=== PATIENT | male | born 1995 | race African-American/Black ===

== ENCOUNTER 2018-10-31 08:39 | Emergency (ER) | payer MEDICAID ==
[~2018-10-31] VITALS: Ht 182.9 cm; Wt 104.5 kg
[~2018-10-31 08:39] MED LIST: FAMO-1 PO; OMEP-84 PO; TRAM50TA2 PO; ZOF4T PO
--- NOTE | 2018-10-31 10:32 | NUR ---
Preston Waller contacted and will send someone to loosen ankle bracelet. [phone]. She advised someone should be here within an hour.
[2018-10-31 10:57] LABS: BASOPHILS % (AUTO) 0.9 % (0-1); EOSINOPHILS # (AUTO) 0.1 X10'3 (0-0.9); HEMATOCRIT 45.8 % (42.0-52.0); HEMOGLOBIN 15.6 g/dl (14.0-17.9); LYMPHOCYTES % (AUTO) 26.2 % (21-51); MEAN CORPUSCULAR VOLUME 88.5 FL (78-98); MEAN PLATELET VOLUME 9.2 FL (7.4-10.4); MONOCYTES # (AUTO) 0.3 X10'3 (0-0.9); NEUTROPHILS # (AUTO) 2.5 X10'3 (1.8-7.7); NEUTROPHILS % (AUTO) 62.9 % (42-75); PLATELET COUNT 161 X10'3 (140-440); RED BLOOD COUNT 5.18 X10'6 (4.70-6.10); RED CELL DISTRIBUTION WIDTH 13.4 % (11.5-14.5)
[2018-10-31 11:10] VITALS: BP 140/81
[2018-10-31 11:29] LABS: ALANINE AMINOTRANSFERASE 30 U/L (12-78); ALBUMIN 3.8 G/DL (3.4-5.0); ALKALINE PHOSPHATASE 65 IU/L (46-116); ANION GAP 6 (8-16); ASPARTATE AMINO TRANSFERASE 11 U/L (10-37); BILIRUBIN,TOTAL 0.4 MG/DL (0.1-1.0); BLOOD UREA NITROGEN 14 MG/DL (7-18); BUN/CREATININE RATIO 14.3 (5.4-32.0); CALCIUM 8.7 MG/DL (8.5-10.1); CHLORIDE 104 MMOL/L (99-107); CREATININE 0.98 MG/DL (0.60-1.10); GLUCOSE 96 MG/DL (70-104); POTASSIUM 3.7 MMOL/L (3.5-5.1); SODIUM 140 MMOL/L (135-145); TOTAL CARBON DIOXIDE 29.6 MMOL/L (24-32); TOTAL PROTEIN 7.7 G/DL (6.4-8.2); eGFR > 90 ML/MIN
== END 2018-10-31 12:37 | disposition home or self-care (01) ==
LOC: ER 08:39
DX: R60.0 Localized edema (principal); R20.0 Anesthesia of skin; R06.01 Orthopnea; I10 Essential (primary) hypertension; F41.9 Anxiety disorder, unspecified; Z79.899 Other long term (current) drug therapy; Z83.3 Family history of diabetes mellitus
CPT/HCPCS: 36415; 71045; 80053; 83880; 85025; 99284

== ENCOUNTER 2019-12-13 18:36 | Emergency (ER) | payer MEDICAID ==
[~2019-12-13] VITALS: Ht 182.9 cm; Wt 129.6 kg
[2019-12-13] MEDS ORDERED: naloxone 2mg/2ml inj ONE (19:03)
[2019-12-13] MEDS ORDERED: naloxone 2mg/2ml inj IV STA ×2 (19:03→19:35)
[2019-12-13] MEDS ORDERED: normal saline 1000ML IV soln IVB ONE (19:05)
[2019-12-13 19:18] LABS: BASOPHILS % (AUTO) 0.8 % (0-1); EOSINOPHILS # (AUTO) 0.1 X10'3 (0-0.9); HEMATOCRIT 45.1 % (42.0-52.0); HEMOGLOBIN 15.5 g/dl (14.0-17.9); LYMPHOCYTES # (AUTO) 1.7 X10'3 (1.1-4.8); LYMPHOCYTES % (AUTO) 37.7 % (21-51); MEAN CORPUSCULAR HEMOGLOBIN 29.7 PG (27.0-31.0); MEAN CORPUSCULAR HGB CONC 34.3 g/dL (33.0-36.5); MEAN CORPUSCULAR VOLUME 86.5 FL (78-98); MEAN PLATELET VOLUME 9.3 FL (7.4-10.4); MONOCYTES # (AUTO) 0.5 X10'3 (0-0.9); NEUTROPHILS # (AUTO) 2.1 X10'3 (1.8-7.7); NEUTROPHILS % (AUTO) 46.5 % (42-75); PLATELET COUNT 208 X10'3 (140-440); RED BLOOD COUNT 5.22 X10'6 (4.70-6.10); RED CELL DISTRIBUTION WIDTH 13.3 % (11.5-14.5); WHITE BLOOD COUNT 4.5 X10'3 (4.5-11.0)
[2019-12-13 19:33] LABS: ETHANOL < 0.010 GM/DL (0.0-0.010)
[2019-12-13 20:00] VITALS: BP 129/90
[2019-12-13 20:00] LABS: ALANINE AMINOTRANSFERASE 22 U/L (12-78); ALBUMIN/GLOBULIN RATIO 1.1 (1.1-1.5); ALKALINE PHOSPHATASE 62 IU/L (46-116); ANION GAP 11 (8-16); ASPARTATE AMINO TRANSFERASE 14 U/L (10-37); BILIRUBIN,TOTAL 0.6 MG/DL (0.1-1.0); BLOOD UREA NITROGEN 11 MG/DL (7-18); BUN/CREATININE RATIO 10.3 (5.4-32.0); CALCIUM 9.1 MG/DL (8.5-10.1); CHLORIDE 105 MMOL/L (99-107); CREATININE 1.07 MG/DL (0.60-1.10); GLUCOSE 96 MG/DL (70-104); POTASSIUM 3.6 MMOL/L (3.5-5.1); SODIUM 139 MMOL/L (135-145); TOTAL CARBON DIOXIDE 23.4 MMOL/L (24-32); TOTAL PROTEIN 7.8 G/DL (6.4-8.2); eGFR > 90 ML/MIN
[2019-12-13] MEDS ORDERED: ondansetron/PF 4mg/2ml inj IV ONE (20:05)
--- NOTE | 2019-12-13 20:12 | NUR ---
LEVI STRAUSS TALKING WITH PT PT REQUESTS TO LEAVE AMA.
[2019-12-13 20:21] LABS: TROPONIN I < 0.04 NG/ML (0.0-0.05)
--- NOTE | 2019-12-13 21:51 | NUR ---
PT CALLED 'RESPIRATORY EQUIPMENT ASSISTANT' TO THE ROOM, WENT INTO THE ROOM AND HE IS UPSET THAT 'HIS NURSE' STATES HE IS ON DRUGS. INFORMED THE PATIENT THAT IS NOT WHAT IS TRANSPIRING. HE HAS BEEN INFORMED BY THE RN THAT WE DO NOT CARE, BUT THAT WE NEED TO KNOW IF HE TOOK SOMETHING. HE DENIES. I WAS ABLE TO HAVE HIM SIGN RELEASE OF INFORMATION FOR [facility] [place] HE HAS HAD C[place]. HE STATES THAT HE HAD BEEN DIAGNOSED WITH H. PYLORI STAGE II AND THAT WHEN HE GETS OVERWHELMED HIS BODY 'JUST SHUTS DOWN.' THE GIRLFRIEND STATES THAT 'HE FLAT LINED AT [facility]ICE' THE PATIENT HAS SIGNED OUT AMA BUT NOW STATES THAT HE WANTS TO BE TRANSFERRED. THE PATIENT HAS REFUSED TO GIVE A UA, HE REFUSED A HEAD CT AND AN ABDOMINAL CT, ACCORDING TO LEVI STRAUSS.
--- NOTE | 2019-12-13 22:10 | NUR ---
DR. MERCADO WENT IN WITH ME TO TALK TO THE PATIENT, SHE EXPLAINED TO HIM THAT SHE WANTED TO DO A NEURO CONSULT AND A CT OF THE HEAD AND OTHER TESTING SO THAT WHEN SHE CALLED THE OTHER HOSPTIALS FOR A TRANSFER, SHE WOULD HAVE A BETTER IDEA OF WHAT HE NEEDED TO BE TRANSFERRED FOR. THE PATIENT LAYED HIS HEAD DOWN ON THE BED AND CLOSED HIS EYES. WHEN THE GIRLFRIEND ASKED HIM WHAT HE WANTED TO DO, HE JUST SAID 'HOME'. THE MD INFORMED HIM THAT THE HOSPITAL IS OPEN 24 HOURS A DAY, TO COME OR CALL FOR AN AMBULANCE IF HIS CONDITION WORSENS. HE GOT UP OUT OF BED ON HIS OWN ACCORD AND GOT INTO THE AND WHEELED OUT TO HIS VEHICLE.
--- NOTE | 2019-12-13 22:16 | NUR ---
THE GIRLFRIEND ASKED ME "DID HE REALLY REFUSE HIS TESTS?" WHEN HER AND I WERE AT THE REAR OF THE CAR AFTER HE WAS INSIDE OF THE CAR. I INFORMED HER THAT YES HE DID. SHE SAID 'AFTER I EVEN CALLED THE AMBULANCE, THAT AILEENTARD.'
--- NOTE | 2019-12-14 01:52 | NUR ---
PATIENTS GIRLFRIEND JUST CALLED AND ASKED FOR ME TO READ TO THEM THE XRAY REPORT. INFORMED THEM TO CONTACT MEDICAL RECORDS NEXT WEEK.
== END 2019-12-13 22:19 | disposition left against medical advice (07) ==
LOC: ER 18:37
DX: J96.90 Respiratory failure, unspecified, unspecified whether with hypoxia or hypercapnia (principal); R11.2 Nausea with vomiting, unspecified; I10 Essential (primary) hypertension; F41.9 Anxiety disorder, unspecified; Z98.890 Other specified postprocedural states; Z79.899 Other long term (current) drug therapy
CPT/HCPCS: 36415; 71045; 80053; 80320; 82140; 82948; 84484; 85025; 93005; 94660; 96361; 96374; 99291; 99292; J2310; J7030; 94760; 99285

== ENCOUNTER 2019-12-14 10:16 | Emergency (ER) | payer MEDICAID ==
[~2019-12-14] VITALS: Ht 182.9 cm; Wt 127.3 kg
[2019-12-14] MEDS ORDERED: normal saline 1000ML IV soln IVB ONE (11:15)
[2019-12-14] MEDS ORDERED: ondansetron/PF 4mg/2ml inj IV ONE (11:25)
[2019-12-14 11:31] LABS: BASOPHILS % (AUTO) 0.7 % (0-1); EOSINOPHILS # (AUTO) 0.1 X10'3 (0-0.9); EOSINOPHILS % (AUTO) 1.7 % (0-6); HEMATOCRIT 45.6 % (42.0-52.0); HEMOGLOBIN 15.5 g/dl (14.0-17.9); LYMPHOCYTES # (AUTO) 1.3 X10'3 (1.1-4.8); LYMPHOCYTES % (AUTO) 23.3 % (21-51); MEAN CORPUSCULAR HEMOGLOBIN 29.9 PG (27.0-31.0); MEAN CORPUSCULAR VOLUME 88.1 FL (78-98); MEAN PLATELET VOLUME 9.3 FL (7.4-10.4); MONOCYTES # (AUTO) 0.5 X10'3 (0-0.9); MONOCYTES % (AUTO) 9.1 % (2-12); NEUTROPHILS # (AUTO) 3.6 X10'3 (1.8-7.7); NEUTROPHILS % (AUTO) 65.2 % (42-75); PLATELET COUNT 211 X10'3 (140-440); RED BLOOD COUNT 5.18 X10'6 (4.70-6.10); RED CELL DISTRIBUTION WIDTH 13.4 % (11.5-14.5); WHITE BLOOD COUNT 5.5 X10'3 (4.5-11.0)
[2019-12-14 11:43] LABS: PARTIAL THROMBOPLASTIN TIME 26 SECONDS (22-32)
[2019-12-14 11:47] LABS: ALANINE AMINOTRANSFERASE 23 U/L (12-78); ALBUMIN 4.1 G/DL (3.4-5.0); ALBUMIN/GLOBULIN RATIO 1.1 (1.1-1.5); ALKALINE PHOSPHATASE 63 IU/L (46-116); ANION GAP 12 (8-16); ASPARTATE AMINO TRANSFERASE 14 U/L (10-37); BILIRUBIN,TOTAL 0.9 MG/DL (0.1-1.0); BLOOD UREA NITROGEN 15 MG/DL (7-18); BUN/CREATININE RATIO 11.7 (5.4-32.0); CALCIUM 9.2 MG/DL (8.5-10.1); CHLORIDE 106 MMOL/L (99-107); CREATININE 1.28 MG/DL (0.60-1.10); GLUCOSE 77 MG/DL (70-104); POTASSIUM 4.3 MMOL/L (3.5-5.1); SODIUM 142 MMOL/L (135-145); TOTAL CARBON DIOXIDE 24.3 MMOL/L (24-32); TOTAL PROTEIN 7.9 G/DL (6.4-8.2); eGFR 83 ML/MIN
[2019-12-14 11:54] LABS: ETHANOL < 0.010 GM/DL (0.0-0.010); LIPASE 63 U/L (73-393); MAGNESIUM 2.1 MG/DL (1.5-2.4)
[2019-12-14] MEDS ORDERED: iohexol 350MG/ML 100ml bottle IV ONE (12:13)
--- NOTE | 2019-12-14 12:48 | NUR ---
Jose Daniel byrd in [facility] - 12/14/19 at 1250 by [email or web address] PT MARIA R CAPPS CABRERA [phone]
--- NOTE | 2019-12-14 12:50 | NUR ---
PT GIRL FRIEND CABRERA [phone]
[2019-12-14 14:16] VITALS: BP 124/70
[2019-12-14 14:26] LABS: URINE AMPHETAMINE SCREEN POSITIVE (Neg); URINE BARBITUATE SCREEN NEGATIVE (Neg); URINE BENZODIAZEPINES SCREEN NEGATIVE (Neg); URINE CANNABINOID SCREEN NEGATIVE (Neg); URINE COCAINE SCREEN NEGATIVE (Neg); URINE METHADONE SCREEN NEGATIVE (Neg); URINE OPIATE SCREEN NEGATIVE (Neg); URINE PHENCYCLIDINE SCREEN NEGATIVE (Neg)
[2019-12-14] MEDS ORDERED: pantoprazole 40 MG vial IV ONE (14:50)
[2019-12-15 12:41] LABS: ABG BASE EXCESS -1.8 mmol/L (-2.0-2.0); ABG HCO3 23.2 mmol/L (22.0-26.0); ABG PCO2 (T) 40.5 mmHg (35.0-48.0); ABG PO2 (T) 84.6 mmHg (75.0-100.0); ALLEN'S TEST POSITIVE; FCOHb 0.5 % (0.0-3.9); FMetHb 0.4 % (0.0-1.5); FO2Hb 95.1 % (94-97); TOTAL HEMOGLOBIN 16.3 G/dl (14.0-18.0)
== END 2019-12-14 16:07 | disposition home or self-care (01) ==
LOC: ER 10:17
DX: R11.2 Nausea with vomiting, unspecified (principal); R07.89 Other chest pain; F41.9 Anxiety disorder, unspecified; F15.10 Other stimulant abuse, uncomplicated; R19.7 Diarrhea, unspecified; R10.13 Epigastric pain; R10.31 Right lower quadrant pain; R10.32 Left lower quadrant pain; I10 Essential (primary) hypertension; G47.30 Sleep apnea, unspecified; R06.02 Shortness of breath; R22.43 Localized swelling, mass and lump, lower limb, bilateral; Z63.8 Other specified problems related to primary support group; Z72.89 Other problems related to lifestyle
CPT/HCPCS: 36415; 36600; 71275; 74177; 80053; 80305; 80320; 82803; 83605; 83690; 83735; 83880; 84145; 84484; 85018; 85025; 85610; 85730; 87635; 93005; 96361; 96374; 96375; 99285; C9113; C9803; J2405; J7030; Q9967

== ENCOUNTER 2019-12-15 19:16 | Emergency (ER) | payer MEDICAID ==
[~2019-12-15] VITALS: Ht 182.9 cm; Wt 109.1 kg
[2019-12-15 20:38] LABS: BASOPHILS % (AUTO) 0.7 % (0-1); EOSINOPHILS # (AUTO) 0.3 X10'3 (0-0.9); EOSINOPHILS % (AUTO) 5.2 % (0-6); HEMOGLOBIN 14.1 g/dl (14.0-17.9); LYMPHOCYTES # (AUTO) 1.6 X10'3 (1.1-4.8); LYMPHOCYTES % (AUTO) 32.7 % (21-51); MEAN CORPUSCULAR HEMOGLOBIN 29.6 PG (27.0-31.0); MEAN CORPUSCULAR HGB CONC 33.5 g/dL (33.0-36.5); MEAN CORPUSCULAR VOLUME 88.4 FL (78-98); MEAN PLATELET VOLUME 9.4 FL (7.4-10.4); MONOCYTES # (AUTO) 0.5 X10'3 (0-0.9); MONOCYTES % (AUTO) 9.6 % (2-12); NEUTROPHILS # (AUTO) 2.6 X10'3 (1.8-7.7); NEUTROPHILS % (AUTO) 51.8 % (42-75); PLATELET COUNT 184 X10'3 (140-440); RED BLOOD COUNT 4.75 X10'6 (4.70-6.10); RED CELL DISTRIBUTION WIDTH 13.1 % (11.5-14.5)
[2019-12-15 21:00] LABS: ALANINE AMINOTRANSFERASE 23 U/L (12-78); ALBUMIN 3.7 G/DL (3.4-5.0); ALBUMIN/GLOBULIN RATIO 1.1 (1.1-1.5); ALKALINE PHOSPHATASE 55 IU/L (46-116); ANION GAP 7 (8-16); ASPARTATE AMINO TRANSFERASE 15 U/L (10-37); BILIRUBIN,TOTAL 0.5 MG/DL (0.1-1.0); BLOOD UREA NITROGEN 13 MG/DL (7-18); BUN/CREATININE RATIO 11.8 (5.4-32.0); CALCIUM 8.7 MG/DL (8.5-10.1); CHLORIDE 105 MMOL/L (99-107); GLUCOSE 101 MG/DL (70-104); POTASSIUM 3.5 MMOL/L (3.5-5.1); SODIUM 138 MMOL/L (135-145); TOTAL CARBON DIOXIDE 26.3 MMOL/L (24-32); TOTAL PROTEIN 7.2 G/DL (6.4-8.2); eGFR > 90 ML/MIN
[2019-12-15 21:01] LABS: ACETAMINOPHEN < 2.0 UG/ML (10-30); ETHANOL < 0.010 GM/DL (0.0-0.010)
--- NOTE | 2019-12-15 21:24 | NUR ---
CABRERA LLOYD'S GIRLFRIEND
[2019-12-15 21:37] LABS: URINE AMPHETAMINE SCREEN POSITIVE (Neg); URINE BARBITUATE SCREEN NEGATIVE (Neg); URINE BENZODIAZEPINES SCREEN NEGATIVE (Neg); URINE CANNABINOID SCREEN NEGATIVE (Neg); URINE COCAINE SCREEN NEGATIVE (Neg); URINE METHADONE SCREEN NEGATIVE (Neg); URINE OPIATE SCREEN NEGATIVE (Neg); URINE PHENCYCLIDINE SCREEN NEGATIVE (Neg)
--- NOTE | 2019-12-16 00:37 | NUR ---
pt snoring heavily. RT at bedside and awakening Pt to offer him cpap. Pt refused.
[2019-12-16 07:53] VITALS: BP 137/79
== END 2019-12-16 11:00 | disposition home or self-care (01) ==
LOC: ER 19:17
DX: F23 Brief psychotic disorder (principal); I10 Essential (primary) hypertension; F41.9 Anxiety disorder, unspecified; Z98.890 Other specified postprocedural states; Z72.89 Other problems related to lifestyle; Z79.899 Other long term (current) drug therapy
CPT/HCPCS: 36415; 80053; 80305; 80320; 80329; 85025; 99285

== ENCOUNTER 2020-01-01 14:30 | Emergency (ER) | payer MEDICAID ==
[~2020-01-01] VITALS: Ht 188 cm; Wt 120.0 kg
--- NOTE | 2020-01-01 15:00 | NUR ---
pt is 24 yo male c/o midsternal chest "pressure" radiating at times to left chest x2 weeks, has been seen at [facility] and referred to acupuncturist, also sees psychologist and counselor for anxiety and panic d/o, not on any meds, waiting to be evaluated by provider
[2020-01-01] MEDS ORDERED: LORazepam 1 MG tablet PO ONE (15:30)
--- NOTE | 2020-01-01 15:55 | NUR ---
PT HAS BEEN PLACED ON 1798 PER PROVIDER FOR SUICIDAL THOUGHTS, PT DENIES A PLAN, HE IS TEARFUL, CRYING, SAID HE HAD BEEN TALKING WITH COUNSELOR, COUNSELOR REFERRED PT TO ER FOR EVALUATION HE FELT SUICIDAL, PT SAID HE WOULD LIKE HELP BUT IS REFUSING BLOOD DRAW AND UA SAMPLE, PT IS AWARE HE IS ON PSYCH HOLD BUT WOULD LIKE TO GO HOME NOW WITH HIS GIRLFRIEND, Taylor SIMS AWARE AND WILL TALK WITH PT
--- NOTE | 2020-01-01 16:30 | NUR ---
PT CONTINUE TO REFUSE BLOOD DRAW AND TO WEAR GREEN SCRUBS,
--- NOTE | 2020-01-01 16:44 | NUR ---
PT IS ALSO REFUSING ATIVAN
--- NOTE | 2020-01-01 17:19 | NUR ---
PT IS SLEEPING, RESP EVEN AND UNLABORED, STILL REFUSING BLOOD DRAW, URINE SAMPLE AND TO WEAR GREEN SCRUBS
--- NOTE | 2020-01-01 17:40 | NUR ---
pt amb with steady gait from fast track to main ER, Dr Carey is aware pt still refusing blood work etc
--- NOTE | 2020-01-01 17:41 | NUR ---
pt just agreed to have blood drawn
[2020-01-01 18:08] LABS: BASOPHILS # (AUTO) 0.1 X10'3 (0-0.2); BASOPHILS % (AUTO) 0.9 % (0-1); EOSINOPHILS # (AUTO) 0.1 X10'3 (0-0.9); EOSINOPHILS % (AUTO) 2.3 % (0-6); HEMATOCRIT 46.3 % (42.0-52.0); HEMOGLOBIN 15.6 g/dl (14.0-17.9); LYMPHOCYTES # (AUTO) 1.5 X10'3 (1.1-4.8); LYMPHOCYTES % (AUTO) 24.6 % (21-51); MEAN CORPUSCULAR HEMOGLOBIN 29.9 PG (27.0-31.0); MEAN CORPUSCULAR HGB CONC 33.6 g/dL (33.0-36.5); MEAN PLATELET VOLUME 9.1 FL (7.4-10.4); MONOCYTES # (AUTO) 0.6 X10'3 (0-0.9); MONOCYTES % (AUTO) 9.1 % (2-12); NEUTROPHILS # (AUTO) 3.9 X10'3 (1.8-7.7); NEUTROPHILS % (AUTO) 63.1 % (42-75); PLATELET COUNT 188 X10'3 (140-440); RED CELL DISTRIBUTION WIDTH 13.3 % (11.5-14.5); WHITE BLOOD COUNT 6.1 X10'3 (4.5-11.0)
--- NOTE | 2020-01-01 18:10 | NUR ---
PT IS REFUSING HIS MEDS , CHARGE NURSE AWARE .WILL CONT TO MONITOR.NO DITRESS NOTED .
[2020-01-01 18:21] LABS: ALANINE AMINOTRANSFERASE 28 U/L (12-78); ALBUMIN 3.9 G/DL (3.4-5.0); ALKALINE PHOSPHATASE 68 IU/L (46-116); ANION GAP 5 (8-16); ASPARTATE AMINO TRANSFERASE 13 U/L (10-37); BILIRUBIN,TOTAL 0.7 MG/DL (0.1-1.0); BLOOD UREA NITROGEN 13 MG/DL (7-18); BUN/CREATININE RATIO 13.3 (5.4-32.0); CALCIUM 8.7 MG/DL (8.5-10.1); CHLORIDE 105 MMOL/L (99-107); CREATININE 0.98 MG/DL (0.60-1.10); GLUCOSE 91 MG/DL (70-104); POTASSIUM 3.9 MMOL/L (3.5-5.1); SODIUM 141 MMOL/L (135-145); TOTAL CARBON DIOXIDE 30.6 MMOL/L (24-32); TOTAL PROTEIN 7.8 G/DL (6.4-8.2); eGFR > 90 ML/MIN
[2020-01-01 18:23] LABS: ETHANOL < 0.010 GM/DL (0.0-0.010)
--- NOTE | 2020-01-01 18:30 | NUR ---
PT SLEEPING IN BED WITH HOB ELEVATED 30 DEGREES . RESP EVEN AND UNLABORED . PT IN THE DIRECT LINE OF SIGHT OF NURSING STAFF . WILL CONTINUE TO MONITOR AND REASSESS NEEDED. PT WITH SITER AT BEDSIDE . PT NEEDING UA SPECIMAN . PLAN OF CARE UPDATED
[2020-01-01 21:11] LABS: URINE AMPHETAMINE SCREEN POSITIVE (Neg); URINE BARBITUATE SCREEN NEGATIVE (Neg); URINE BENZODIAZEPINES SCREEN NEGATIVE (Neg); URINE CANNABINOID SCREEN NEGATIVE (Neg); URINE COCAINE SCREEN NEGATIVE (Neg); URINE METHADONE SCREEN NEGATIVE (Neg); URINE OPIATE SCREEN NEGATIVE (Neg); URINE PHENCYCLIDINE SCREEN NEGATIVE (Neg)
[2020-01-01 21:12] LABS: CLARITY,URINE CLEAR (Clear); COLOR,URINE AMBER (Yellow); GLUCOSE, URINE NEGATIVE (Neg); KETONES,URINE TRACE mg/dl (Neg); LEUKOCYTE ESTERASE ,URINE NEGATIVE (Neg); NITRITES, URINE NEGATIVE (Neg); OCCULT BLOOD,URINE NEGATIVE (Neg); PH,URINE 5.5 (4.8-8.0); PROTEIN,URINE NEGATIVE (Neg); UA COLLECTION TYPE CLN CATCH MIDSTREAM
--- NOTE | 2020-01-01 22:42 | NUR ---
PT HAS BEEN DX WITH SLEEP APNEA IN THE PAST. PT SNORING LOUDLY. 02 SAT 89-90%.
--- NOTE | 2020-01-01 22:47 | NUR ---
INFORMED DR. RITCHIE OF ABOVE. STATES, RADHA GARCIA IS ORDERING CPAP.
--- NOTE | 2020-01-01 23:02 | NUR ---
RT AT BEDSIDE 02 SATS 78-82% RA. PLACING CPAP ON PT
--- NOTE | 2020-01-01 23:12 | NUR ---
CPAP PLACED BY RT. CPAP PRESSURE AT 10, 30% FI02.
--- NOTE | 2020-01-02 03:03 | NUR ---
Patient is sleeping quietly in a mid fowlers position. CPAP in place. Quiet resp. SaO2 is 97 percent on room air. In view from nursing station.
--- NOTE | 2020-01-02 06:30 | NUR ---
pt is sleeping. no concerns at this time
--- NOTE | 2020-01-02 07:34 | NUR ---
pt is sleeping. no concerns at this time
--- NOTE | 2020-01-02 08:30 | NUR ---
pt is sleeping. no concerns at this time
--- NOTE | 2020-01-02 09:30 | NUR ---
pt is sleeping. no concerns at this time
--- NOTE | 2020-01-02 10:30 | NUR ---
pt is sleeping. no concerns at this time
--- NOTE | 2020-01-02 11:30 | NUR ---
pt talking with [facility]
--- NOTE | 2020-01-02 12:30 | NUR ---
pt is sleeping. no concerns at this time
--- NOTE | 2020-01-02 13:00 | NUR ---
pt is sleeping. no concerns at this time
--- NOTE | 2020-01-02 14:00 | NUR ---
pt is sleeping. no concerns at this time
--- NOTE | 2020-01-02 15:00 | NUR ---
pt is sleeping. no concerns at this time
--- NOTE | 2020-01-02 16:00 | NUR ---
pt is sleeping. no concerns at this time
--- NOTE | 2020-01-02 17:00 | NUR ---
pt is sleeping. no concerns at this time
--- NOTE | 2020-01-02 18:30 | NUR ---
Care assumed. Patient is sitting up at bedside, cooperative with staff at this time.
--- NOTE | 2020-01-02 19:32 | NUR ---
Patient reached up and pressed code blue button. Code blue cancelled. Patient advised not to be presssing wall buttons for the fun of it.
--- NOTE | 2020-01-02 19:51 | NUR ---
Patient is resting, low fowlers in bed. No distress. CPAP in place.
--- NOTE | 2020-01-02 21:34 | NUR ---
PT SLEEPING ON RIGHT SIDE C PAP IN PLACE RESP EVEN AND UNLABORED PT IN THE DIRECT LINE OF SIGHT OF NURSING STAFF WILL CONTINUE TO MONITOR AND REASSESS
--- NOTE | 2020-01-03 00:49 | NUR ---
Patient is sleeping supine in bed, in view from nursing station.
--- NOTE | 2020-01-03 02:02 | NUR ---
Patient is sleeping quietly in a supine position on CPAP. In view from nursing station.
--- NOTE | 2020-01-03 04:11 | NUR ---
Paged RT RE: Pt in Bed 23 c Pap continuously alarming. Have tried multiple times to adjust Please come assist
--- NOTE | 2020-01-03 04:21 | NUR ---
Patient high pressure alarm on CPAP alarming. Patient is showing no signs of resp distress. Respiratory care arrived and is evaluating.
--- NOTE | 2020-01-03 04:30 | NUR ---
RT has evaluated CPAP, repositioned mask. Machine still alarms intermittently.
--- NOTE | 2020-01-03 04:54 | NUR ---
Patient needs intermittent adjustment of CPAP mask.
--- NOTE | 2020-01-03 07:48 | NUR ---
SPOKE WITH [facility] REGARDING PT BEING ADMITTED AFTER THEY D/C A PT AT 1000.
--- NOTE | 2020-01-03 08:41 | NUR ---
PROVIDED PT CRISTINA
[2020-01-03] MEDS ORDERED: ondansetron 4mg rapidly disintigrating tab PO ONE (09:45)
--- NOTE | 2020-01-03 11:36 | NUR ---
pt sleeping, in no apparent distress, even rise and fall of chest, will continue to monitor closely.
[2020-01-03 12:04] VITALS: BP 106/52
[2020-01-03] MEDS ORDERED: NO HOME MEDS PO (17:19)
== END 2020-01-03 12:24 ==
LOC: ER 14:30
DX: F41.9 Anxiety disorder, unspecified (principal); R45.851 Suicidal ideations; I10 Essential (primary) hypertension; G47.30 Sleep apnea, unspecified; Z72.89 Other problems related to lifestyle; Z98.890 Other specified postprocedural states; Z79.899 Other long term (current) drug therapy
CPT/HCPCS: 36415; 80053; 80305; 80320; 81003; 85025; 93005; 94660; 94760; 99285

== ENCOUNTER 2020-03-09 01:03 | Emergency (ER) | payer MEDICAID ==
[~2020-03-09] VITALS: Ht 182.9 cm; Wt 128.7 kg
[~2020-03-09 01:03] MED LIST changes: -FAMO-1 PO; +FAMO40TA58 PO; +PRAZ1CAP5 PO; +SERT25TA5 PO; -TRAM50TA2 PO; +TRAZ-251 PO; -ZOF4T PO
[2020-03-09] MEDS ORDERED: NO HOME MEDS (01:23)
[2020-03-09 02:35] LABS: BASOPHILS % (AUTO) 0.7 % (0-1); EOSINOPHILS # (AUTO) 0.2 X10'3 (0-0.9); EOSINOPHILS % (AUTO) 5.9 % (0-6); HEMATOCRIT 49.1 % (42.0-52.0); HEMOGLOBIN 16.8 g/dl (14.0-17.9); LYMPHOCYTES # (AUTO) 1.3 X10'3 (1.1-4.8); LYMPHOCYTES % (AUTO) 41.2 % (21-51); MEAN CORPUSCULAR HEMOGLOBIN 30.3 PG (27.0-31.0); MEAN CORPUSCULAR HGB CONC 34.3 g/dL (33.0-36.5); MEAN CORPUSCULAR VOLUME 88.3 FL (78-98); MEAN PLATELET VOLUME 9.2 FL (7.4-10.4); MONOCYTES # (AUTO) 0.3 X10'3 (0-0.9); MONOCYTES % (AUTO) 10.3 % (2-12); NEUTROPHILS # (AUTO) 1.3 X10'3 (1.8-7.7); NEUTROPHILS % (AUTO) 41.9 % (42-75); PLATELET COUNT 219 X10'3 (140-440); RED BLOOD COUNT 5.56 X10'6 (4.70-6.10); RED CELL DISTRIBUTION WIDTH 13.8 % (11.5-14.5); WHITE BLOOD COUNT 3.2 X10'3 (4.5-11.0)
[2020-03-09 02:38] LABS: URINE AMPHETAMINE SCREEN POSITIVE (Neg); URINE BARBITUATE SCREEN NEGATIVE (Neg); URINE BENZODIAZEPINES SCREEN NEGATIVE (Neg); URINE CANNABINOID SCREEN NEGATIVE (Neg); URINE COCAINE SCREEN NEGATIVE (Neg); URINE METHADONE SCREEN NEGATIVE (Neg); URINE OPIATE SCREEN NEGATIVE (Neg); URINE PHENCYCLIDINE SCREEN NEGATIVE (Neg)
[2020-03-09 02:39] LABS: ALANINE AMINOTRANSFERASE 21 U/L (12-78); ALKALINE PHOSPHATASE 75 IU/L (46-116); ANION GAP 5 (8-16); ASPARTATE AMINO TRANSFERASE 9 U/L (10-37); BILIRUBIN,TOTAL 0.4 MG/DL (0.1-1.0); BLOOD UREA NITROGEN 11 MG/DL (7-18); BUN/CREATININE RATIO 11.6 (5.4-32.0); CALCIUM 8.5 MG/DL (8.5-10.1); CHLORIDE 107 MMOL/L (99-107); CREATININE 0.95 MG/DL (0.60-1.10); GLUCOSE 101 MG/DL (70-104); POTASSIUM 3.5 MMOL/L (3.5-5.1); SODIUM 143 MMOL/L (135-145); TOTAL CARBON DIOXIDE 31.4 MMOL/L (24-32); eGFR > 90 ML/MIN
[2020-03-09 02:40] LABS: ETHANOL < 0.010 GM/DL (0.0-0.010)
--- NOTE | 2020-03-09 03:07 | NUR ---
lying on sidesnoring HOB upno signs of distress or pain
--- NOTE | 2020-03-09 04:30 | NUR ---
SNORING, NO DISTRESS NOTED
--- NOTE | 2020-03-09 05:53 | NUR ---
REPOSITIONS SELF, NO COMPLAINTS, COOPERATIVE.
--- NOTE | 2020-03-09 07:00 | NUR ---
Received pt from main ER around 6:30. Pt introduced to unit and spoke briefly with this RN. Pt recognized this RN from previous admission and was cooperative. Pt returned to sleep almost immediately and has been sleeping since. Pt snoring but without signs of distress.
--- NOTE | 2020-03-09 09:00 | NUR ---
Pt remains asleep without distress.
--- NOTE | 2020-03-09 10:42 | NUR ---
PT SLEEPING SNORING LOUDLY WITH PERIODS OF APNEA. HR 90-LOW 100S. 02 SAT LOW 89%. PT AROUSABLE AND ASKED IF HE WHERES CPAP AT HOME. STATES, YES. INFORMED DR. KRAUS. PLEASE SEE NEW ORDERS.
--- NOTE | 2020-03-09 11:00 | NUR ---
Pt awake and participated in evaluation by [facility] and was found to be DTS and thus put on a 5150. Pt cooperative with process. Pt did become upset when it was mentioned that he may go upstairs. He stated that last admission [facility] made him feel "shame"
--- NOTE | 2020-03-09 11:44 | NUR ---
door to door selling agent Lai Martin [phone] ankle monitor needs to charge for 1 hour every 12 hours. officer's card is in chart.
--- NOTE | 2020-03-09 12:07 | NUR ---
Michelle from RT here to evaluate for CPAP. O2 sat was 95% and she stated she will not put him on one now, but that if he's here tonight, she will.
--- NOTE | 2020-03-09 13:00 | NUR ---
Pt resting quietly in bed. Without complaints.
--- NOTE | 2020-03-09 13:48 | NUR ---
called mother, she did not answer; left message regarding a sleep apnea machine. gave call back number.
--- NOTE | 2020-03-09 14:17 | NUR ---
[facility] call with ETA for pickup of pt Scotty Packer at [phone]
[2020-03-09 14:18] LABS: CLARITY,URINE CLOUDY (Clear); COLOR,URINE YELLOW (Yellow); GLUCOSE, URINE NEGATIVE (Neg); KETONES,URINE NEGATIVE (Neg); LEUKOCYTE ESTERASE ,URINE NEGATIVE (Neg); NITRITES, URINE NEGATIVE (Neg); OCCULT BLOOD,URINE NEGATIVE (Neg); PROTEIN,URINE NEGATIVE (Neg)
[2020-03-09 14:25] LABS: UA COLLECTION TYPE VOIDED
[2020-03-09 14:26] LABS: AMORPHOUS URATES 4+; BACTERIA,URINE NONE SEEN /HPF (Neg); MUCUS STRANDS FEW /LPF (Neg); RBC,URINE NONE SEEN /HPF (0-2); SQUAMOUS EPITHELIAL CELL,UR NONE SEEN /LPF (FEW); WBC,URINE NONE SEEN /HPF (0-4)
[2020-03-09 14:27] LABS: CAL OXALATE CRYSTALS 1+ /HPF (NEGATIVE)
--- NOTE | 2020-03-09 15:00 | NUR ---
Pt talking on phone. Pt compliant with COVID test; though, he was scared, he handled test well.
--- NOTE | 2020-03-09 17:00 | NUR ---
Pt went to the bathroom and c/o nausea and vomit and diarrhea. When pt came out of bathroom, pt was acting a little paranoid and suspicious with agitated comments. Pt left alone and he fell asleep.
[2020-03-09 19:25] VITALS: BP 146/92
== END 2020-03-09 19:28 ==
LOC: ER 01:03
DX: R45.851 Suicidal ideations (principal); F15.10 Other stimulant abuse, uncomplicated; I10 Essential (primary) hypertension; F41.9 Anxiety disorder, unspecified; F32.9 Major depressive disorder, single episode, unspecified; Z79.899 Other long term (current) drug therapy; Z20.828 Contact with and (suspected) exposure to other viral communicable diseases
CPT/HCPCS: 36415; 80053; 80305; 80320; 81001; 84443; 85025; 87635; 99285; C9803; 94760